=== PATIENT | female | born 1965 | race African-American/Black ===

== ENCOUNTER 2018-08-15 11:06 | Emergency (ER) | payer BC ==
[~2018-08-15] VITALS: Ht 177.8 cm; Wt 68.0 kg
[2018-08-15 11:14] VITALS: BP 130/61
[2018-08-15] MEDS ORDERED: BENZ100C PO (11:39)
--- NOTE | 2018-08-15 11:39 | PHYS DOC ---
Past Medical History Past Medical History: No Pertinent History (MAYUR CODY APRN) Past Surgical History: (MAYUR CODY APRN) Alcohol Use: None Drug Use: None (MAYUR CODY APRN) Adult General Chief Complaint Chief Complaint: Congestion HPI HPI Patient is a 53 year old AA female who since to the emergency Department today with complaints of productive cough and chest congestion for the last 4 days. Patient denies any fever, rash, ear pain, vomiting, or abdominal pain. She states that she has had a mild sore throat, nausea, and 2 loose stools yesterday. Patient states she did not receive her annual influenza shot this year. She denies any body aches, shortness of breath, or wheezing. Patient states that she has coughed up some dark to light green thick sputum. (MAYUR CODY APRN) Review of Systems Review of Systems Constitutional: Denies fever or chills [] Eyes: Denies change in visual acuity, redness, or eye pain [] HENT: Denies nasal congestion; see history of present illness Respiratory: See history of present illness Cardiovascular: No additional information not addressed in HPI [] GI: Denies abdominal pain, or vomiting; see history of present illness : Denies dysuria or hematuria [] Musculoskeletal: Denies back pain or joint pain [] Integument: Denies rash or skin lesions [] Neurologic: Denies headache, focal weakness or sensory changes [] (MAYUR CODY APRN) Allergies Allergies Allergies Coded Allergies Type Severity Reaction Last Updated Verified No Known Drug Allergies 08/15/18 No (RIGO SALEEM DO) Physical Exam Physical Exam Constitutional: Well developed, well nourished, no acute distress, non-toxic appearance. [] HENT: Normocephalic, atraumatic, bilateral external ears normal, bilateral TMs normal, moist mucous membranes, oropharynx moist, no oral exudates, nose normal. [] Eyes: conjunctiva normal, no discharge. [] Neck: Normal range of motion, no tenderness, supple, no stridor. [] Cardiovascular:Heart rate regular rhythm, no murmur [] Lungs & Thorax: Bilateral breath sounds clear to auscultation [] Skin: Warm, dry, no erythema, no rash. [] Extremities: No cyanosis, no clubbing, ROM intact, no edema. [] Neurologic: Alert and oriented X 3, normal motor function, normal sensory function, no focal deficits noted. [] Psychologic: Affect normal, judgement normal, mood normal. [] (MAYUR CODY APRN) Current Patient Data Vital Signs Vital Signs Date Time Temp Pulse Resp B/P (MAP) Pulse Ox O2 Delivery O2 Flow Rate FiO2 08/15/18 11:14 97.5 57 16 130/61 (84) 98 Room Air 97.5 (RIGO SALEEM DO) EKG EKG [] (MAYUR CODY APRN) Radiology/Procedures Radiology/Procedures [] (MAYUR CODY APRN) Course & Med Decision Making Course & Med Decision Making Pertinent Labs and Imaging studies reviewed. (See chart for details) dx: URI Prescription written for Tessalon Tahminaes. Recommend use of a Cool mist humidifier in room at bedtime. Alternate Tylenol or ibuprofen as needed for pain /fever. Increase clear fluids. Avoid airway triggers such as smoke, fragrance, dust, and pollen. Follow-up with your primary care doctor symptoms persist, return to the ER symptoms worsen. Patient verbalized an understanding of home care, medications, follow-up, and return to ED instructions and was in agreement with the plan of care. [] (MAYUR CODY APRN) Dragon Disclaimer Dragon Disclaimer This electronic medical record was generated, in whole or in part, using a voice recognition dictation system. (MAYUR CODY APRN) Departure Departure Impression: Primary Impression: URI with cough and congestion Disposition: 01 HOME, SELF-CARE Condition: STABLE Patient Instructions: Upper Respiratory Infection, Adult, [id number] Additional Instructions: Fill prescription(s) and use as directed. Recommend use of a Cool mist humidifier in room at bedtime. Alternate Tylenol or ibuprofen as needed for pain /fever. Increase clear fluids. Avoid airway triggers such as smoke, fragrance, dust, and pollen. May take [id number] cough suppressants as needed. Follow -up with your primary care doctor symptoms persist, return to the ER symptoms worsen. Scripts Benzonatate (TESSALON PERLE) 100 Mg Capsule 1 CAP PO TID PRN for COUGH, #21 CAP 0 Refills Prov: MAYUR CODY PACKAGING SALES REPRESENTATIVE 08/15/18 Attending Signature Attending Signature I have reviewed the PA/CORRECTIONAL OFFICER CAPTAIN's note and plan of care. I was available for consultation as needed during the patient's visit in the emergency department. I agree with the clinical impression, plan, and disposition. (RIGO SALEEM DO) MAYUR CODY PACKAGING SALES REPRESENTATIVE Aug 15, 2018 11:39 RIGO SALEEM DO Aug 15, 2018 12:10
== END 2018-08-15 11:53 | disposition home or self-care (01) ==
LOC: ER 11:06
DX: J06.9 Acute upper respiratory infection, unspecified (principal); R11.0 Nausea; Z98.890 Other specified postprocedural states
CPT/HCPCS: 99283

== ENCOUNTER → 2018-09-29 | Outpatient (CLI) | payer BC ==
[~2018-09-29] MED LIST: BENZ100C PO
--- NOTE | 2018-09-29 09:51 | RAD ---
DATE: 09/29/2018 EXAM: MAMMO FIFI SCREENING BILATERAL HISTORY: Baseline. Screening mammogram. COMPARISON: None This study was interpreted with the benefit of Computerized Aided Detection (CAD). FINDINGS: Breast Density: SCATTERED The breast parenchyma shows scattered fibroglandular densities. Breast parenchyma level B. The skin and nipples are within normal limits. No suspicious calcifications. There is a 4 mm oval-shaped mass in the posterior outer upper quadrant of the left breast likely at 2-3:00 position. Otherwise, no spiculated masses or area of architectural distortion seen. IMPRESSION: Posterior left breast abnormality as described above most likely an intramammary lymph node. However since this is a baseline mammogram confirmation is recommended with ultrasound. BI-RADS CATEGORY: 0 INCOMPLETE: NEED ADDITIONAL IMAGING EVAULATION AND/OR PRIOR MAMMOGRAMS FOR COMPARISON RECOMMENDED FOLLOW-UP: ADD ADDITIONAL IMAGING. Ultrasound of the left posterior breast at 2-3:00 position recommended. PQRS compliance statement: Patient information was entered into a reminder system with a target due date for the next mammogram. Mammography is a sensitive method for finding small breast cancers, but it does not detect them all and is not a substitute for careful clinical examination. A negative mammogram does not negate a clinically suspicious finding and should not result in delay in biopsying a clinically suspicious abnormality. "Our facility is accredited by the [employer] Mammography Program."
== END | disposition home or self-care (01) ==
LOC: MAMMO 08:09
PROVIDERS: ATTEND Internal Medicine
DX: Z12.31 Encounter for screening mammogram for malignant neoplasm of breast (principal)
CPT/HCPCS: 77063; 77067